=== PATIENT | male | born 1985 | race African-American/Black ===

== ENCOUNTER 2017-01-20 18:11 | Emergency (ER) | payer OTHER ==
[~2017-01-20] VITALS: Ht 185.4 cm; Wt 90.7 kg
[~2017-01-20 18:11] MED LIST: ACULAR 0.5%5 ML OS; POLYTRIM O200 GTT/BO OPH
--- NOTE | 2017-01-20 19:33 | ED AMS/SEIZURE/WEAK/DIZZY ---
History of Present Illness General Chief Complaint: Dizziness Stated Complaint: DIZZY Source: patient Exam Limitations: no limitations Vital Signs & Intake/Output Vital Signs & Intake/Output Vital Signs Date Time Temp Pulse Resp B/P B/P Pulse O2 O2 Flow FiO2 Mean Ox Delivery Rate 01/20 1958 98.0 70 18 138/69 99 01/20 1815 99.5 74 16 143/84 98 Room Air ED Intake and Output 01/21 0000 01/20 1200 Intake Total Output Total Balance Patient 200 lb Weight Weight Reported by Patient Measurement Method Allergies Coded Allergies: NO KNOWN ALLERGIES (02/24/15) Reconcile Medications Ketorolac Tromethamine (Acular 0.5%) 0.5 % DROPS 1 GTT OS 4 TIMES/DAY PAIN Meclizine HCl 12.5 MG TABLET 1 TAB PO TID PRN DIZZINESS Polytrim (Polytrim Eye Drops) 10,000 UNIT-1 MG/ML DROPS 1 GTT OPH Q6 CORNEAL ABRASION Triage Note: PT STATES HE HAS BEEN FEELING DIZZY SINCE YESTERDAY. PT REPORTS WHEN HE MOVES HIS HEAD IT IS HARD TO FOCUS AND HE FEELS DIZZY. PT STATES THIS HAS NOT HAPPEND TO HIM BEFORE. PT DENIES SOB OR CHEST PAIN. PT REPORTS WHEN HE CHANGES POSITION THE DIZZYNESS IS WORSE. Triage Nurses Notes Reviewed? yes Onset: Abrupt Duration: day(s): (2) Timing: multiple episodes today Injury Environment: home Severity: mild Modifying Factors: Worsens With: movement (SIDE TO SIDE). HPI: This is a 31-year-old male who presents to the ER for chief complaint of dizziness that started yesterday. It is worse when he moves his head side to side. Denies any sore throat, tinnitus. Denies any headache or blurred vision. He states that he was encouraged by his girlfriend to be evaluated. Denies any chest pain palpitations shortness of breath and denies abdominal pain nausea vomiting. No ataxia or weakness. No history of similar symptoms in the past before. He states he was eating and drinking normally and try to increase his fluid intake yesterday in case he was just dehydrated. Past History Travel History Traveled to [place] past 21 day No Medical History Any Pertinent Medical History? see below for history Neurological: NONE EENT: NONE Cardiovascular: NONE Respiratory: NONE Gastrointestinal: NONE Hepatic: NONE Renal: NONE Musculoskeletal: NONE Psychiatric: NONE Endocrine: NONE Blood Disorders: NONE Cancer(s): NONE DIRECTOR IMAGING/Reproductive: NONE Surgical History Surgical History: NONE Psychosocial History What is your primary language Guamanian Tobacco Use: Current Daily Use Daily Tobacco Use Amount/Type: => 5 Cigarettes daily ETOH Use: denies use Illicit Drug Use: denies illicit drug use Family History Hx Contributory? No Review of Systems Review of Systems Constitutional: Denies: chills, fever. EENTM: Reports: no symptoms. Respiratory: Denies: cough. Cardiovascular: Denies: chest pain, palpitations. GI: Denies: abdominal pain, nausea, vomiting. Genitourinary: Reports: no symptoms. Musculoskeletal: Reports: no symptoms. Skin: Reports: no symptoms. Neurological/Psychological: Reports: no symptoms. Hematologic/Endocrine: Denies: bruising, bleeding. Immunologic/Allergic: Denies: splenectomy. All Other Systems: Reviewed and Negative Physical Exam Physical Exam General Appearance: well developed/nourished, alert, awake Head: atraumatic, normal appearance Eyes: Bilateral: PERRL, EOMI. Ears, Nose, Throat: normal pharynx, hearing grossly normal Neck: normal inspection, supple, full range of motion Respiratory: normal breath sounds, chest non-tender, no respiratory distress Cardiovascular: regular rate/rhythm Peripheral Pulses: 2+ radial (R), 2+ radial (L) Gastrointestinal: soft, non-tender Neurologic/Psych: no motor/sensory deficits, awake, alert, oriented x 3 Skin: intact, normal color, warm/dry Core Measures ACS in differential dx? No CVA/TIA Diagnosis: No Severe Sepsis Present: No Septic Shock Present: No Progress Differential Diagnosis: benign positional vertigo, CVA/stroke, dehydration, intracranial Hem., intracranial mass/tumor, labrynthitis, presyncope Plan of Care: Orders Procedure Date/time Status MISTAKE 01/21 1932 Active FingerStick- Glucose 01/21 1932 Active EKG 01/21 1932 Active FINGERSTICK NORMAL ORTHOSTATICS NEGATIVE, PATIENT WITH ELEVATED PRESSURE PATIENT WILL FOLLOW UP WITH THE [facility] [employer]ELF [employer]ENSE SYSTEM MK1 OPERATOR REAGARDING EKG AND BLOOD PRESSURE. (GAVIN BRAND,RICKI) Initial ED EKG: NSR, LVH Departure Departure Time of Disposition: 1952 Disposition: HOME OR SELF CARE Condition: Stable Clinical Impression Primary Impression: Dizziness Referrals: PATIENT HAS NO PRIMARY CARE DR (PCP/Family) Additional Instructions: Take the meclizine as directed. Follow up with the bandage maker listed regarding your EKG. Return for any changing or worsening symptoms. Departure Forms: Customer Survey General Discharge Information Prescriptions: Current Visit Scripts Meclizine HCl 1 TAB PO TID PRN DIZZINESS #30 TAB
[2017-01-20] MEDS ORDERED: MECLIZINE HCL12.5 M1 PO (19:54)
[2017-01-20 19:58] VITALS: BP 138/69
== END 2017-01-20 20:00 ==
LOC: ERH 18:11
DX: R42 Dizziness and giddiness (principal)
CPT/HCPCS: 93005; 93010